=== PATIENT | female | born 1985 | race Two or more races ===

== ENCOUNTER 2018-08-02 23:42 | Emergency (ER) | payer BC ==
[2018-08-02] MEDS ORDERED: NS 1,000 ML IV ONE (23:58)
[2018-08-02] MEDS ORDERED: ONDANSETRON 4 MG/2 ML VIAL IVP ONE (23:58)
--- NOTE | 2018-08-03 00:08 | EDPHY ---
H & P Stated Complaint: RUQ ABD PAIN, N/V, DIARRHEA Time Seen by Provider: 08/02/18 23:58 HPI/ROS: HPI The patient presents with nausea, vomiting, diarrhea which began tonight and awoke her from sleep. She initially developed watery loose diarrhea without any blood and began vomiting. She had several episodes of nonbloody nonbilious emesis. She now feels very nauseated. For the last 3 days she has had right upper quadrant abdominal pain which has been intermittent and is sharp, worse when she takes a deep breath. She thought it was related to a recent URI type illness that she and several family members had. She had been coughing quite a bit at that time. The cough has resolved though she is left with this pain. It is mild in severity and is currently not present. REVIEW OF SYSTEMS 10 systems were reviewed and negative with the exception of the elements mentioned in the history of present illness. PMHx: Healthy Soc Hx: Mother to a 2-year-old child, here with her PHYSICAL General Appearance: Alert, no distress Eyes: Pupils equal and round no pallor or injection ENT, Mouth: Mucous membranes moist Respiratory: There are no retractions, lungs are clear to auscultation, there is no tenderness to the chest wall Cardiovascular: Regular rate and rhythm Gastrointestinal: Abdomen is soft and mildly tender in the right upper quadrant , no masses, bowel sounds normal Neurological: A&O, moves all extremities Skin: Warm and dry, no rashes Musculoskeletal: Neck is supple non tender Extremities: symmetrical, full range of motion Psychiatric: Patient is oriented X 3, there is no agitation Source: Patient Exam Limitations: No limitations - Personal History LMP (Females 10-55): IUD In Place Current Tetanus Diphtheria and Acellular Pertussis (TDAP): Yes - Medical/Surgical History Hx Asthma: No Hx Chronic Respiratory Disease: No Hx Diabetes: No Hx Cardiac Disease: No Hx Renal Disease: No Hx Cirrhosis: No Hx Alcoholism: No Hx HIV/AIDS: No Hx Splenectomy or Spleen Trauma: No Other PMH: DENIES - Social History Smoking Status: Never smoked Constitutional: Initial Vital Signs Temperature (C) 36.8 C 08/02/18 23:44 Heart Rate 121 H 08/02/18 23:44 Respiratory Rate 16 08/02/18 23:44 Blood Pressure 118/67 08/02/18 23:44 O2 Sat (%) 97 08/02/18 23:44 O2 Delivery Mode Room Air Allergies/Adverse Reactions: No Known Allergies Allergy (Unverified 08/02/18 23:43) Home Medications: Medication Instructions Recorded NK [No Known Home Meds] 08/02/18 Medical Decision Making Procedures: Bedside limited abdominal Ultrasound- performed and interpreted by me. Indication: Right upper quadrant abdominal pain Findings: No gallstones visualized, no pericholecystic fluid, no gallbladder wall thickening Impression: No sonographic evidence of cholecystitis. Differential Diagnosis: 32-year-old female who is healthy presents with 3 days of intermittent right upper quadrant pain, now with several hours of nausea, vomiting, diarrhea. Here , she is tachycardic, she is mildly tender in the right upper quadrant. Differential diagnosis includes biliary colic, cholecystitis, gastritis, costochondritis after URI, viral gastroenteritis, toxin mediated enterocolitis. Patient had IV line established and was given IV fluids and Zofran. Bedside right upper quadrant ultrasound was performed showing no evidence of gallstones. Labs demonstrated leukocytosis with left shift suggesting infectious process. On reassessment she felt much better. She had no ongoing symptoms. She tolerated p. O. Challenge. She will be discharged home with Zofran. Ultimately , I suspect she has a gastroenteritis. - Data Points Laboratory Results: Laboratory Results 08/02/18 23:55 08/02/18 23:55 08/02/18 08/02/18 23:55 23:55 WBC 13.49 10^3/uL H 10^3/uL (3.80-9.50) RBC 5.05 10^6/uL 10^6/uL (4.18-5.33) Hgb 15.3 g/dL g/dL (12.6-16.3) Hct 46.7 % % (38.0-47.0) MCV 92.5 fL fL (81.5-99.8) MCH 30.3 pg pg (27.9-34.1) MCHC 32.8 g/dL g/dL (32.4-36.7) RDW 13.1 % % (11.5-15.2) Plt Count 185 10^3/uL 10^3/uL (150-400) MPV 11.0 fL fL (8.7-11.7) Neut % (Auto) 90.5 % H % (39.3-74.2) Lymph % (Auto) 6.1 % L % (15.0-45.0) Pope % (Auto) 2.4 % L % (4.5-13.0) Eos % (Auto) 0.6 % % (0.6-7.6) Baso % (Auto) 0.2 % L % (0.3-1.7) Nucleat RBC Rel Count 0.0 % % (0.0-0.2) Absolute Neuts (auto) 12.20 10^3/uL H 10^3/uL (1.70-6.50) Absolute Lymphs (auto) 0.82 10^3/uL L 10^3/uL (1.00-3.00) Absolute Monos (auto) 0.33 10^3/uL 10^3/uL (0.30-0.80) Absolute Eos (auto) 0.08 10^3/uL 10^3/uL (0.03-0.40) Absolute Basos (auto) 0.03 10^3/uL 10^3/uL (0.02-0.10) Absolute Nucleated RBC 0.00 10^3/uL 10^3/uL (0-0.01) Immature Gran % 0.2 % % (0.0-1.1) Immature Gran # 0.03 10^3/uL 10^3/uL (0.00-0.10) Sodium 142 mEq/L mEq/L (135-145) Potassium 4.3 mEq/L mEq/L (3.5-5.2) Chloride 110 mEq/L mEq/L (97-110) Carbon Dioxide 21 mEq/l L mEq/l (22-31) Anion Gap 11 mEq/L mEq/L (6-14) BUN 16 mg/dL mg/dL (7-23) Creatinine 0.8 mg/dL mg/dL (0.6-1.0) Estimated GFR > 60 Glucose 133 mg/dL H mg/dL (70-100) Calcium 9.8 mg/dL mg/dL (8.5-10.4) Total Bilirubin 1.2 mg/dL mg/dL (0.1-1.4) AST 22 IU/L IU/L (14-46) ALT 28 IU/L IU/L (9-52) Alkaline Phosphatase 94 IU/L IU/L (38-126) Total Protein 8.2 g/dL g/dL (6.3-8.2) Albumin 5.1 g/dL H g/dL (3.5-5.0) Lipase 55 IU/L IU/L (23-300) Medications Given: Discontinued Medications Sodium Chloride (Ns) 1,000 mls @ 0 mls/hr IV EDNOW ONE; Wide Open PRN Reason: Protocol Stop: 08/02/18 23:59 Last Admin: 08/03/18 00:04 Dose: 1,000 mls Ondansetron HCl (Zofran) 4 mg IVP EDNOW ONE Stop: 08/02/18 23:59 Last Admin: 08/03/18 00:04 Dose: 4 mg Ondansetron HCl (Zofran Odt 4 Mg Prepack#2) 1 btl TAKEHOME EDNOW ONE Stop: 08/03/18 00:25 Last Admin: 08/03/18 00:37 Dose: 1 btl Departure - Departure Disposition: Home, Routine, Self-Care Clinical Impression: RUQ abdominal pain, Nausea vomiting and diarrhea Condition: Good Instructions: Acute Nausea and Vomiting (ED) Additional Instructions: Please return if your worse in any way. Make sure to drink sips of clear liquid until your feeling better. Then you can advance her diet to a bland foods. Referrals: NONE *PRIMARY CARE P,. [Primary Care Provider] - As per Instructions
[2018-08-03] MEDS ORDERED: ONDANSETRON 4MG PREPACK#2 BTL TAKEHOME ONE (00:24)
[2018-08-03 00:25] LABS: PLATELET COUNT 185 10^3/uL (150-400)
[2018-08-03 00:38] VITALS: BP 106/67
== END 2018-08-03 00:50 | disposition home or self-care (01) ==
DX: R11.2 Nausea with vomiting, unspecified (principal); R10.11 Right upper quadrant pain; R19.7 Diarrhea, unspecified; E86.9 Volume depletion, unspecified
CPT/HCPCS: 96374; J2405